=== PATIENT | male | born 1980 | race Caucasian/White ===

== ENCOUNTER 2019-05-25 17:41 | Inpatient (IN) | payer BC ==
[2019-05-25] MEDS: morphine 4 MG/ML VIAL IV ×2 (18:29→23:38)
[2019-05-25] MEDS ORDERED: ACETAMINOPHEN 325 MG TAB PO (18:30)
[2019-05-25] MEDS ORDERED: ONDANSETRON 4 MG INJ IV (18:30)
[2019-05-25] MEDS ORDERED: FENTAnyl 50 MCG/ML VIAL IV (19:30)
[2019-05-25] MEDS: HYDROmorphONE 2 MG/ML SYG IV (19:31)
[2019-05-25] MEDS: DEXTROSE 5%-0.45% NACL 1,000 ML IV (20:41)
[2019-05-25] MEDS: FENTAnyl 50 MCG/ML VIAL IV ×2 (21:05→23:00)
[2019-05-25] MEDS: IOHEXOL 14.3 MG(I)/ML (ADULT) BTL PO (22:30)
[2019-05-25 22:31] LABS: ADD MAN DIFF? NO
[2019-05-25 22:33] LABS: BASOPHILS % 0.2 % (0.0-2.0); EOSINOPHILS % 0.2 % (0.0-7.0); HEMATOCRIT 38.9 % (42.0-52.0); HEMOGLOBIN 12.4 g/dl (14.0-18.0); LYMPHOCYTES # 1.5 10^3/ul (0.8-2.9); LYMPHOCYTES % 12.1 % (15.0-51.0); MEAN CORPUSCULAR HEMOGLOBIN 28.4 pg (29.0-33.0); MEAN CORPUSCULAR HGB CONC 31.9 g/dl (32.0-37.0); MEAN CORPUSCULAR VOLUME 89.2 fl (82.0-101.0); MEAN PLATELET VOLUME 8.9 fl (7.4-10.4); MONOCYTE # 1.1 10^3/ul (0.3-0.9); MONOCYTES % 9.1 % (0.0-11.0); NEUTROPHIL # 9.4 10^3/ul (1.6-7.5); NEUTROPHILS % 78.1 % (39.0-77.0); PLATELET COUNT 294 10^3/UL (140-415); RED BLOOD COUNT 4.36 10^6/ul (4.70-6.10); RED CELL DISTRIBUTION WIDTH 13.5 % (11.5-14.5)
[2019-05-25 22:51] LABS: PHOSPHORUS 4.2 mg/dl (2.5-4.9)
[2019-05-25 22:51] LABS: ANION GAP 8 (5-13); BLOOD UREA NITROGEN 13 mg/dl (7-20); CALCIUM 8.9 mg/dl (8.4-10.2); CARBON DIOXIDE 28 mmol/L (21-31); CHLORIDE 101 mmol/L (97-110); CREATININE 0.97 mg/dl (0.61-1.24); Estimated GFR > 60 mL/min (>60); GLUCOSE 131 mg/dl (70-220); MAGNESIUM 2.1 mg/dl (1.7-2.5); POTASSIUM 4.1 mmol/L (3.5-5.1); SODIUM 137 mmol/L (135-144)
[2019-05-26 00:46] LABS: HEMATOCRIT 37.7 % (42.0-52.0); HEMOGLOBIN 12.2 g/dl (14.0-18.0)
[2019-05-26] MEDS: FENTAnyl 50 MCG/ML VIAL IV ×5 (01:01→09:19)
[2019-05-26] MEDS: SOD CHLORIDE 0.9% 100 ML (01:34)
[2019-05-26] MEDS: IOHEXOL 300MG/ML 150 ML BTL (01:35)
[2019-05-26] MEDS: morphine 4 MG/ML VIAL IV ×2 (02:31→04:29)
[2019-05-26] MEDS: DEXTROSE 5%-0.45% NACL 1,000 ML IV (05:10)
[2019-05-26 05:26] LABS: ADD MAN DIFF? NO
[2019-05-26 05:33] LABS: BASOPHILS % 0.2 % (0.0-2.0); EOSINOPHILS # 0.1 10^3/ul (0.0-0.5); EOSINOPHILS % 0.5 % (0.0-7.0); HEMATOCRIT 36.8 % (42.0-52.0); HEMOGLOBIN 11.7 g/dl (14.0-18.0); LYMPHOCYTES # 1.4 10^3/ul (0.8-2.9); LYMPHOCYTES % 12.3 % (15.0-51.0); MEAN CORPUSCULAR HEMOGLOBIN 28.6 pg (29.0-33.0); MEAN CORPUSCULAR HGB CONC 31.8 g/dl (32.0-37.0); MEAN PLATELET VOLUME 9.4 fl (7.4-10.4); MONOCYTE # 1.3 10^3/ul (0.3-0.9); MONOCYTES % 11.1 % (0.0-11.0); NEUTROPHIL # 8.8 10^3/ul (1.6-7.5); NEUTROPHILS % 75.3 % (39.0-77.0); PLATELET COUNT 320 10^3/UL (140-415); RED BLOOD COUNT 4.09 10^6/ul (4.70-6.10); RED CELL DISTRIBUTION WIDTH 13.5 % (11.5-14.5)
[2019-05-26 05:33] LABS: WHITE BLOOD COUNT 11.7 10^3/ul (4.8-10.8)
[2019-05-26 05:50] LABS: INR 1.12; PARTIAL THROMBOPLASTIN TIME 32.2 Sec (23.0-35.0); PROTIME 14.5 Sec (11.9-14.9); PT RATIO 1.1
[2019-05-26 05:56] LABS: ANION GAP 8 (5-13); BLOOD UREA NITROGEN 12 mg/dl (7-20); CALCIUM 8.6 mg/dl (8.4-10.2); CARBON DIOXIDE 29 mmol/L (21-31); CHLORIDE 99 mmol/L (97-110); CREATININE 0.94 mg/dl (0.61-1.24); Estimated GFR > 60 mL/min (>60); GLUCOSE 135 mg/dl (70-220); SODIUM 136 mmol/L (135-144)
[2019-05-26] MEDS: HYDROmorphONE 1 MG/ML SYG IV ×5 (06:06→17:51)
[2019-05-26] MEDS ORDERED: NALOXONE (0.4 MG/ML) INJ IV (10:30)
[2019-05-26 12:35] LABS: HEMATOCRIT 35.8 % (42.0-52.0); HEMOGLOBIN 11.5 g/dl (14.0-18.0)
[2019-05-26] MEDS: POLYETHYLENE GLYCOL 17 GM PACKET PO (12:39)
[2019-05-26] MEDS: PANTOPRAZOLE 40 MG INJ IV (12:40)
[2019-05-26] MEDS: HYDROCODONE/APAP (10/325) TAB PO ×3 (12:49→22:00)
[2019-05-26 12:55] LABS: CREATINE KINASE 55 IU/L (23-200)
[2019-05-26 21:04] LABS: HEMATOCRIT 34.2 % (42.0-52.0); HEMOGLOBIN 10.9 g/dl (14.0-18.0)
[2019-05-27] MEDS: HYDROmorphONE 1 MG/ML SYG IV (00:17)
[2019-05-27] MEDS: HYDROCODONE/APAP (10/325) TAB PO ×3 (03:55→19:59)
[2019-05-27 04:40] LABS: ADD MAN DIFF? NO
[2019-05-27 04:48] LABS: WHITE BLOOD COUNT 9.5 10^3/ul (4.8-10.8)
[2019-05-27 04:48] LABS: BASOPHILS % 0.3 % (0.0-2.0); EOSINOPHILS # 0.2 10^3/ul (0.0-0.5); EOSINOPHILS % 2.1 % (0.0-7.0); HEMATOCRIT 33.4 % (42.0-52.0); HEMOGLOBIN 10.7 g/dl (14.0-18.0); LYMPHOCYTES # 2.1 10^3/ul (0.8-2.9); LYMPHOCYTES % 21.8 % (15.0-51.0); MEAN CORPUSCULAR HEMOGLOBIN 29.2 pg (29.0-33.0); MONOCYTE # 1.1 10^3/ul (0.3-0.9); MONOCYTES % 11.3 % (0.0-11.0); NEUTROPHIL # 6.1 10^3/ul (1.6-7.5); NEUTROPHILS % 64.2 % (39.0-77.0); PLATELET COUNT 321 10^3/UL (140-415); RED BLOOD COUNT 3.67 10^6/ul (4.70-6.10); RED CELL DISTRIBUTION WIDTH 13.2 % (11.5-14.5)
[2019-05-27 05:01] LABS: PHOSPHORUS 3.8 mg/dl (2.5-4.9)
[2019-05-27 05:01] LABS: MAGNESIUM 2.3 mg/dl (1.7-2.5)
[2019-05-27 05:03] LABS: ALANINE AMINOTRANSFERASE 31 IU/L (13-69); ALBUMIN 3.7 g/dl (3.3-4.9); ALBUMIN/GLOBULIN RATIO 1.12; ALKALINE PHOSPHATASE 46 IU/L (42-121); ANION GAP 5 (5-13); ASPARTATE AMINO TRANSFERASE 18 IU/L (15-46); BILIRUBIN,INDIRECT 0.6 mg/dl (0-1.1); BILIRUBIN,TOTAL 0.6 mg/dl (0.2-1.3); BLOOD UREA NITROGEN 14 mg/dl (7-20); CALCIUM 8.8 mg/dl (8.4-10.2); CARBON DIOXIDE 35 mmol/L (21-31); CHLORIDE 96 mmol/L (97-110); CREATININE 1.12 mg/dl (0.61-1.24); Estimated GFR > 60 mL/min (>60); GLUCOSE 123 mg/dl (70-220); POTASSIUM 4.7 mmol/L (3.5-5.1); SODIUM 136 mmol/L (135-144)
[2019-05-27] MEDS: PANTOPRAZOLE 40 MG INJ IV (06:14)
[2019-05-27] MEDS: POLYETHYLENE GLYCOL 17 GM PACKET PO (08:34)
[2019-05-27] MEDS: BISACODYL (EC) 5 MG TAB PO (10:34)
[2019-05-27] MEDS: SOD CHLORIDE 0.9% 1,000 ML IV (17:41)
[2019-05-27] MEDS: FERROUS SULFATE (EC) 325 MG TAB PO (21:25)
[2019-05-27] MEDS: DOCUSATE SODIUM 100 MG CAP PO (21:25)
[2019-05-27] MEDS: FAMOTIDINE 20 MG TAB PO (21:25)
[2019-05-28] MEDS: HYDROCODONE/APAP (10/325) TAB PO ×4 (01:14→23:04)
[2019-05-28] MEDS: SOD CHLORIDE 0.9% 1,000 ML IV ×3 (03:35→16:12)
[2019-05-28 05:29] LABS: ADD MAN DIFF? NO
[2019-05-28 05:37] LABS: WHITE BLOOD COUNT 8.4 10^3/ul (4.8-10.8)
[2019-05-28 05:37] LABS: BASOPHILS % 0.4 % (0.0-2.0); EOSINOPHILS # 0.3 10^3/ul (0.0-0.5); HEMATOCRIT 30.7 % (42.0-52.0); HEMOGLOBIN 9.9 g/dl (14.0-18.0); LYMPHOCYTES # 2.3 10^3/ul (0.8-2.9); LYMPHOCYTES % 27.1 % (15.0-51.0); MEAN CORPUSCULAR HGB CONC 32.2 g/dl (32.0-37.0); MONOCYTES % 11.3 % (0.0-11.0); NEUTROPHIL # 4.9 10^3/ul (1.6-7.5); NEUTROPHILS % 57.8 % (39.0-77.0); PLATELET COUNT 334 10^3/UL (140-415); RED BLOOD COUNT 3.41 10^6/ul (4.70-6.10); RED CELL DISTRIBUTION WIDTH 13.2 % (11.5-14.5)
[2019-05-28 05:59] LABS: CREATINE KINASE 42 IU/L (23-200); MAGNESIUM 2.2 mg/dl (1.7-2.5)
[2019-05-28 05:59] LABS: PHOSPHORUS 4.4 mg/dl (2.5-4.9)
[2019-05-28 06:03] LABS: ALANINE AMINOTRANSFERASE 30 IU/L (13-69); ALBUMIN 3.4 g/dl (3.3-4.9); ALBUMIN/GLOBULIN RATIO 1.09; ALKALINE PHOSPHATASE 46 IU/L (42-121); ANION GAP 6 (5-13); ASPARTATE AMINO TRANSFERASE 20 IU/L (15-46); BILIRUBIN,INDIRECT 0.5 mg/dl (0-1.1); BILIRUBIN,TOTAL 0.5 mg/dl (0.2-1.3); BLOOD UREA NITROGEN 16 mg/dl (7-20); CALCIUM 8.5 mg/dl (8.4-10.2); CARBON DIOXIDE 31 mmol/L (21-31); CHLORIDE 101 mmol/L (97-110); Estimated GFR > 60 mL/min (>60); GLUCOSE 107 mg/dl (70-220); POTASSIUM 4.3 mmol/L (3.5-5.1); SODIUM 138 mmol/L (135-144); TOTAL PROTEIN 6.5 g/dl (6.1-8.1)
[2019-05-28] MEDS: FERROUS SULFATE (EC) 325 MG TAB PO ×2 (09:26→20:42)
[2019-05-28] MEDS: DOCUSATE SODIUM 100 MG CAP PO ×2 (09:26→20:42)
[2019-05-28] MEDS: POLYETHYLENE GLYCOL 17 GM PACKET PO (09:26)
[2019-05-28] MEDS: BISACODYL (EC) 5 MG TAB PO (11:10)
[2019-05-28 11:12] LABS: IRON 22 ug/dl (35-150)
[2019-05-28] MEDS: AMLODIPINE 10 MG TAB PO (11:12)
[2019-05-28 11:21] LABS: % IRON SATURATION 9 % SAT (22-52); TOTAL IRON BINDING CAPACITY 248 ug/dl (241-421)
[2019-05-28 12:19] LABS: FOLATE 12.3 ng/ml (2.8-20.0)
[2019-05-28] MEDS: FAMOTIDINE 20 MG TAB PO (20:42)
[2019-05-29] MEDS: HYDROCODONE/APAP (10/325) TAB PO ×3 (03:03→23:48)
[2019-05-29] MEDS: SOD CHLORIDE 0.9% 1,000 ML IV ×3 (03:08→19:30)
[2019-05-29 07:06] LABS: ADD MAN DIFF? NO
[2019-05-29 07:11] LABS: WHITE BLOOD COUNT 8.3 10^3/ul (4.8-10.8)
[2019-05-29 07:11] LABS: BASOPHIL # 0.1 10^3/ul (0.0-0.1); BASOPHILS % 0.6 % (0.0-2.0); EOSINOPHILS # 0.3 10^3/ul (0.0-0.5); EOSINOPHILS % 3.4 % (0.0-7.0); HEMATOCRIT 29.1 % (42.0-52.0); HEMOGLOBIN 9.3 g/dl (14.0-18.0); LYMPHOCYTES # 2.2 10^3/ul (0.8-2.9); LYMPHOCYTES % 26.2 % (15.0-51.0); MEAN CORPUSCULAR HEMOGLOBIN 28.7 pg (29.0-33.0); MEAN CORPUSCULAR VOLUME 89.8 fl (82.0-101.0); MONOCYTE # 0.9 10^3/ul (0.3-0.9); MONOCYTES % 11.1 % (0.0-11.0); NEUTROPHIL # 4.8 10^3/ul (1.6-7.5); PLATELET COUNT 326 10^3/UL (140-415); RED BLOOD COUNT 3.24 10^6/ul (4.70-6.10); RED CELL DISTRIBUTION WIDTH 13.2 % (11.5-14.5)
[2019-05-29 07:30] LABS: ANION GAP 6 (5-13); BLOOD UREA NITROGEN 16 mg/dl (7-20); CALCIUM 8.5 mg/dl (8.4-10.2); CARBON DIOXIDE 29 mmol/L (21-31); CHLORIDE 102 mmol/L (97-110); CREATININE 0.97 mg/dl (0.61-1.24); Estimated GFR > 60 mL/min (>60); GLUCOSE 98 mg/dl (70-220); POTASSIUM 4.6 mmol/L (3.5-5.1); SODIUM 137 mmol/L (135-144)
[2019-05-29 07:34] LABS: MAGNESIUM 2.2 mg/dl (1.7-2.5)
[2019-05-29 07:34] LABS: PHOSPHORUS 3.9 mg/dl (2.5-4.9)
[2019-05-29] MEDS: POLYETHYLENE GLYCOL 17 GM PACKET PO (09:50)
[2019-05-29] MEDS: DOCUSATE SODIUM 100 MG CAP PO ×2 (09:50→21:54)
[2019-05-29] MEDS: FERROUS SULFATE (EC) 325 MG TAB PO ×2 (09:51→21:54)
[2019-05-29] MEDS: AMLODIPINE 10 MG TAB PO (09:53)
[2019-05-29] MEDS: SOD CHLORIDE 0.9% 100 ML (13:10)
[2019-05-29] MEDS: IOHEXOL 100 ML (13:10)
[2019-05-29] MEDS: SOD FERRIC GLUC COMPLX 125 MG in SOD CHLORIDE 0.9% 100 ML IVPB (14:36)
[2019-05-29] MEDS: FAMOTIDINE 20 MG TAB PO (21:54)
[2019-05-30] MEDS: SOD CHLORIDE 0.9% 1,000 ML IV ×2 (02:05→05:28)
[2019-05-30 05:28] LABS: ADD MAN DIFF? NO
[2019-05-30 05:32] LABS: WHITE BLOOD COUNT 9.8 10^3/ul (4.8-10.8)
[2019-05-30 05:33] LABS: BASOPHIL # 0.1 10^3/ul (0.0-0.1); BASOPHILS % 0.7 % (0.0-2.0); EOSINOPHILS # 0.3 10^3/ul (0.0-0.5); HEMATOCRIT 31.9 % (42.0-52.0); HEMOGLOBIN 10.2 g/dl (14.0-18.0); LYMPHOCYTES % 20.7 % (15.0-51.0); MEAN CORPUSCULAR HEMOGLOBIN 28.4 pg (29.0-33.0); MEAN CORPUSCULAR VOLUME 88.9 fl (82.0-101.0); MEAN PLATELET VOLUME 8.8 fl (7.4-10.4); MONOCYTE # 1.1 10^3/ul (0.3-0.9); MONOCYTES % 10.9 % (0.0-11.0); NEUTROPHIL # 6.2 10^3/ul (1.6-7.5); NEUTROPHILS % 63.4 % (39.0-77.0); NUCLEATED RED BLOOD CELLS% 0.3 /100WBC (0.0-0.0); PLATELET COUNT 377 10^3/UL (140-415); RED BLOOD COUNT 3.59 10^6/ul (4.70-6.10); RED CELL DISTRIBUTION WIDTH 13.3 % (11.5-14.5)
[2019-05-30 06:03] LABS: ANION GAP 7 (5-13); BLOOD UREA NITROGEN 13 mg/dl (7-20); CALCIUM 8.7 mg/dl (8.4-10.2); CARBON DIOXIDE 29 mmol/L (21-31); CHLORIDE 102 mmol/L (97-110); CREATININE 0.92 mg/dl (0.61-1.24); Estimated GFR > 60 mL/min (>60); GLUCOSE 109 mg/dl (70-220); SODIUM 138 mmol/L (135-144)
[2019-05-30] MEDS: HYDROCODONE/APAP (10/325) TAB PO (09:35)
[2019-05-30] MEDS: DOCUSATE SODIUM 100 MG CAP PO (09:36)
[2019-05-30] MEDS: POLYETHYLENE GLYCOL 17 GM PACKET PO (09:36)
[2019-05-30] MEDS: AMLODIPINE 10 MG TAB PO (09:36)
[2019-05-30] MEDS: FERROUS SULFATE (EC) 325 MG TAB PO (09:36)
[2019-05-30] MEDS: SOD FERRIC GLUC COMPLX 125 MG in SOD CHLORIDE 0.9% 100 ML IVPB (12:32)
== END 2019-05-30 15:51 | disposition home health service (06) | DRG 394 ==
LOC: PED 17:41 → PP2 05-28 23:09 → 2NE 17:41 → ICU 20:54
PROVIDERS: Internal Medicine
DX: K66.1 Hemoperitoneum (principal); D62 Acute posthemorrhagic anemia; E66.01 Morbid (severe) obesity due to excess calories; N28.1 Cyst of kidney, acquired; I10 Essential (primary) hypertension; K59.00 Constipation, unspecified; D50.9 Iron deficiency anemia, unspecified; Z68.36 Body mass index [BMI] 36.0-36.9, adult; Z71.3 Dietary counseling and surveillance
CPT/HCPCS: 75635; 80048; 80053; 82550; 82607; 82746; 82962; 83540; 83605; 83735; 84100; 85014; 85018; 85025; 85610; 85730; 87081